=== PATIENT | male | born 1980 | race Caucasian/White ===

== ENCOUNTER 2017-05-22 15:58 | Outpatient (RCR) | payer OTHER, SELFPAY | END 2017-05-22 15:59 | LOC: NS 15:58 | PROVIDERS: Family Provider Family Medicine; PCP Family Medicine; Visit Provider Family Medicine | DX: E66.01 Morbid (severe) obesity due to excess calories (principal); Z68.41 Body mass index [BMI] 40.0-44.9, adult; Z71.3 Dietary counseling and surveillance | CPT/HCPCS: 97803 ==

== ENCOUNTER 2017-11-28 11:09 | Outpatient (RCR) | payer OTHER, SELFPAY | END 2017-12-04 23:59 | LOC: NS 11:09 | PROVIDERS: Family Provider Family Medicine; PCP Family Medicine; Visit Provider Family Medicine | DX: E66.01 Morbid (severe) obesity due to excess calories (principal); Z68.42 Body mass index [BMI] 45.0-49.9, adult; Z71.3 Dietary counseling and surveillance | CPT/HCPCS: 97802 ==

== ENCOUNTER 2017-12-19 08:54 | Outpatient (RCR) | payer OTHER, SELFPAY | END 2018-01-04 23:59 | LOC: NS 08:54 | PROVIDERS: Family Provider Family Medicine; PCP Family Medicine; Visit Provider Family Medicine | DX: E66.01 Morbid (severe) obesity due to excess calories (principal); Z68.42 Body mass index [BMI] 45.0-49.9, adult; Z71.3 Dietary counseling and surveillance | CPT/HCPCS: 97803 ==

== ENCOUNTER 2018-01-10 11:58 | Outpatient (RCR) | payer OTHER, SELFPAY | END 2018-02-03 23:59 | LOC: NS 11:58 | PROVIDERS: Family Provider Family Medicine; PCP Family Medicine; Visit Provider Family Medicine | DX: E66.01 Morbid (severe) obesity due to excess calories (principal); Z68.42 Body mass index [BMI] 45.0-49.9, adult; Z71.3 Dietary counseling and surveillance ==

== ENCOUNTER 2018-02-25 09:16 | Outpatient (RCR) | payer OTHER, SELFPAY | END 2018-02-25 23:59 | LOC: NS 09:16 | PROVIDERS: Family Provider Family Medicine; PCP Family Medicine; Visit Provider Family Medicine | DX: E66.01 Morbid (severe) obesity due to excess calories (principal); Z68.42 Body mass index [BMI] 45.0-49.9, adult; Z71.3 Dietary counseling and surveillance | CPT/HCPCS: 97803 ==

== ENCOUNTER → 2018-06-11 12:23 | Outpatient (CLI) | payer OTHER, SELFPAY ==
[2018-06-11 12:14] VITALS: BMI 48.4
--- NOTE | 2018-06-11 12:25 | RAD_ITS ---
STUDY: X-RAY CHEST REASON FOR EXAM: Male, 38 years old. Shortness of breath. Dyspnea. TECHNIQUE: PA and lateral views of the chest. COMPARISON: None. FINDINGS: The lungs are clear and expanded. There is no demonstrated pleural abnormality. Normal size heart. Normal mediastinum and jolene. Normal visualized pulmonary arteries. Normal visualized aortic arch and descending thoracic aorta. Normal visualized thoracic spine. Normal visualized ribs, clavicles, and shoulders. There is no demonstrated abnormality of the visualized soft tissue structures of the upper abdomen. RAD/Chest PA and Lateral IMPRESSION: Normal x-ray examination of the chest. Electronically Signed: Fiasal Sandoval MD at 13:14 EST , Service support ,
== END ==
PROVIDERS: Family Provider Family Medicine; PCP Family Medicine; Referring Provider Physician Assistant Surgical; Visit Provider Physician Assistant Surgical
DX: R06.02 Shortness of breath (principal)
CPT/HCPCS: 71046

== ENCOUNTER → 2019-01-27 10:21 | Outpatient (CLI) | payer OTHER, SELFPAY ==
[2018-08-05 11:03] VITALS: BMI 48.4
[2019-01-27 11:05] LABS: Absolute Lymphocyte Count 2.01 X10^3/uL (0.83-4.51); Absolute Neutrophil Count 3.8 X10^3/uL (2.0-7.7); Basophil# 0.04 X10^3/uL; Basophil% 0.6 % (0-1); Eosinophils% 3.1 % (0-5); Hematocrit 44.4 % (40-54); Hemoglobin 15.5 g/dL (13.0-16.5); Lymphocyte # 2.01 X10^3/ul (4.0); Lymphocyte % 30.8 % (19-41); Mean Corp Hgb Conc 34.9 g/dL (32-36); Mean Corpuscular Hgb 33.5 pg (27.0-32.0); Mean Corpuscular Volume 95.9 fL (80-94); Mean Platelet Vol. 9.8 fl (6.2-12.0); Monocyte# 0.51 X10^3/uL; Monocyte% 7.8 % (0-10); NRBC Flagged by Analyzer 0 % (0-5); Neutrophil # 3.75 X10^3/uL (2.7-7.7); Neutrophil % 57.5 % (47-70); Platelet Count 227 K/mm3 (150-450); RBC Distribution Width CV 12.1 % (11.6-14.6); RBC Distribution Width SD 42.4 fl (35.1-43.9); Red Blood Count 4.63 M/mm3 (4.6-6.2); White Blood Count 6.5 K/mm3 (4.4-11.0)
[2019-01-27 11:40] LABS: ALB/GLOB Ratio 1.1 RATIO (0.9-2.4); AST(SGOT) 28 U/L (15-37); Alanine Aminotransfer ALT/SGPT 64 U/L (16-61); Albumin, Serum 4.1 g/dL (3.2-5.0); Alkaline Phosphatase 72 U/L (45-117); Anion Gap 7 (5-15); BUN 18 mg/dL (7-18); BUN/Creat Ratio 15.9 RATIO (10-20); Calcium,Total 9.2 mg/dL (8.5-10.1); Chloride 105 mmol/L (98-107); Cholesterol 214 mg/dL (200); Creatinine, Serum 1.13 mg/dL (0.70-1.30); EST Glomerular Filtration Rate 77 mL/min (>60); Est Glom Filt Rate - Afr Amer 94 mL/min (>60); Free T3 3.3 pg/mL (2.18-3.98); Globulin 3.9 g/dL (2.2-4.2); Glucose 95 mg/dL (74-106); High Density Lipoprotein 79 mg/dL; Potassium 4.5 mmol/L (3.5-5.1); Sodium Level 140 mmol/L (136-145); Triglycerides 80 mg/dL; Very Low Density Lipoprotein 16 mg/dL (5-40)
== END ==
PROVIDERS: Family Provider Family Medicine; PCP Family Medicine; Referring Provider Family Medicine; Visit Provider Family Medicine
DX: Z13.220 Encounter for screening for lipoid disorders (principal); Z13.1 Encounter for screening for diabetes mellitus; R53.82 Chronic fatigue, unspecified
CPT/HCPCS: 36415; 80053; 80061; 84436; 84439; 84443; 84481; 85025

== ENCOUNTER → 2019-04-07 10:37 | Outpatient (CLI) | payer OTHER, SELFPAY ==
[2019-04-07 10:21] VITALS: BMI 48.4
[2019-04-10 08:33] LABS: Lyme IgG P18 Ab Absent (.); Lyme IgG P23 Ab Absent (.); Lyme IgG P28 Ab Absent (.); Lyme IgG P30 Ab Absent (.); Lyme IgG P39 Ab Absent (.); Lyme IgG P41 Ab Absent (.); Lyme IgG P45 Ab Absent (.); Lyme IgG P58 Ab Absent (.); Lyme IgG P66 Ab Absent (.); Lyme IgG P93 Ab Absent (.); Lyme IgM P23 Ab Absent (.); Lyme IgM P39 Ab Absent (.); Lyme IgM P41 Ab Absent (.)
[2019-04-10 11:21] LABS: Lyme IgG WB Interpretation Negative (.); Lyme IgM WB Interpretation Negative (.)
== END ==
PROVIDERS: Family Provider Family Medicine; PCP Family Medicine; Referring Provider Physician Assistant; Visit Provider Physician Assistant
DX: T14.8XXA Other injury of unspecified body region, initial encounter (principal); W57.XXXA Bitten or stung by nonvenomous insect and other nonvenomous arthropods, initial encounter
CPT/HCPCS: 36415; 86617

== ENCOUNTER → 2020-04-19 10:54 | Outpatient (CLI) | payer OTHER, SELFPAY ==
[2019-07-04 16:25] VITALS: BMI 48.4
--- NOTE | 2020-04-19 10:56 | RAD_ITS ---
STUDY: X-RAY CHEST REASON FOR EXAM: Male, 39 years old. Chronic cough, hx of asthma -- some sob x couple months TECHNIQUE: PA and lateral views of the chest. COMPARISON: Comparison is made with prior study dated 06/11/2017. FINDINGS: The lungs are clear and expanded. There is no demonstrated pleural abnormality. Normal size heart. Normal mediastinum and jolene. Normal visualized pulmonary arteries. Normal visualized aortic arch and descending thoracic aorta. Normal visualized thoracic spine. Normal visualized ribs, clavicles, and shoulders. There is no demonstrated abnormality of the visualized soft tissue structures of the upper abdomen. RAD/Chest PA and Lateral IMPRESSION: Normal x-ray examination of the chest. Electronically Signed: Faisal Sandoval, at 11:19 EST , Service support ,
== END ==
PROVIDERS: PCP Family Medicine; Referring Provider Registered Nurse; Visit Provider Registered Nurse
DX: R05 Cough (principal); Z87.09 Personal history of other diseases of the respiratory system
CPT/HCPCS: 71046

== ENCOUNTER 2020-06-18 14:00 | Outpatient (RCR) | payer OTHER, SELFPAY ==
[2019-07-04 16:25] VITALS: BMI 48.4
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
--- NOTE | 2020-11-10 11:29 | HP.PT.NRP ---
SHANELL LORENZO was seen in my office for initial evaluation on 05/19/20. The following Plan of Care was established for this patient: Initial Frequency: 2x /Week Initial Duration: 4 Weeks This patient was last seen in our office . Pertinent comments regarding their Physical therapy will appear below: Patient seen for PT for lumbar pain for DLS ,postural ex's and Charlette ex's thus is d/c doing better. At this point I will be discontinuing this patient from physical therapy. I would be happy to see this patient again in the future if found appropriate by the physician. Thank you! Juan M Persaud, PT, Cert MDT, OCS
== END 2020-06-18 19:00 | disposition home or self-care (01) ==
LOC: PT 14:00
PROVIDERS: PCP Family Medicine; Referring Provider Family Medicine; Visit Provider Family Medicine
DX: S39.012D Strain of muscle, fascia and tendon of lower back, subsequent encounter (principal)
CPT/HCPCS: 97110; 97162; 97530

== ENCOUNTER → 2020-09-06 13:59 | Outpatient (CLI) | payer OTHER, SELFPAY ==
[2019-07-04 16:25] VITALS: BMI 48.4
--- NOTE | 2020-09-06 14:02 | RAD_ITS ---
STUDY: X-RAY - LEFT ANKLE REASON FOR EXAM: Male, 40 years old. SWELLING TECHNIQUE: 3 view(s) of the ankle. COMPARISON: None. FINDINGS: Normal visualized distal tibia and fibula. Normal medial and lateral malleoli. Normal tibiotalar articulation and ankle mortise. Normal visualized talus and calcaneus. The visualized subtalar, talonavicular, calcaneocuboid and tarsal articulations are normal. There is no demonstrated fracture. There is mild diffuse soft tissue swelling. RAD/Ankle min 3 Views IMPRESSION: Soft tissue swelling as described. Otherwise normal x-ray examination of the ankle. Electronically Signed: Dawna Yusuf MD at 2:07 EDT , Service support ,
--- NOTE | 2020-09-06 14:02 | RAD_ITS ---
STUDY: X-RAY - LEFT FOOT CLINICAL: Male, 40 years old. SWELLING TECHNIQUE: 3 view(s) of the foot. COMPARISON: None. FINDINGS: Normal talus, calcaneus, and tarsal bones. Normal visualized subtalar, talonavicular, calcaneocuboid, tarsal and tarsometatarsal articulations. Normal metatarsi. Normal metatarsophalangeal joint of the great toe. Normal tibial and fibular sesamoid bones. Normal interphalangeal joint of the great toe. Normal phalanges of the great toe. Normal second through fifth metatarsophalangeal joints. Normal interphalangeal joints and phalanges of the lesser toes. There is mild diffuse soft tissue swelling surrounding the ankle and dorsum of the foot. There is no demonstrated fracture. RAD/Foot min 3 Views IMPRESSION: Nonspecific soft tissue swelling. No acute fracture or subluxation. Electronically Signed: Dawna Yusuf MD at 2:07 EDT , Service support ,
== END ==
PROVIDERS: PCP Family Medicine; Referring Provider Family Medicine; Visit Provider Family Medicine
DX: M25.472 Effusion, left ankle (principal)
CPT/HCPCS: 73610; 73630

== ENCOUNTER → 2022-02-14 | Outpatient (CLI) | payer OTHER, SELFPAY ==
--- NOTE | 2022-02-14 11:32 | RAD_ITS ---
STUDY: X-RAY - RIGHT SHOULDER REASON FOR EXAM: Male, 41 years old. Shoulder pain. TECHNIQUE: 4 view(s) of the shoulder. COMPARISON: None. FINDINGS: Normal glenohumeral articulation. Mild arthrosis of the AC joint. Normal acromion. Normal humeral head and visualized proximal humerus. The soft tissue structures are unremarkable. Normal visualized pulmonary apex. RAD/Shoulder min 2 Views IMPRESSION: Mild arthrosis of the AC joint. No other abnormality present. Electronically Signed: Jose Nails, at 12:00 EDT ,
== END | disposition home or self-care (01) ==
LOC: MTRAD 11:22
PROVIDERS: PCP Family Medicine; Referring Provider Family Medicine; Visit Provider Family Medicine
DX: M25.511 Pain in right shoulder (principal)
CPT/HCPCS: 73030

== ENCOUNTER → 2022-05-21 | Outpatient (CLI) | payer OTHER, SELFPAY ==
--- NOTE | 2022-05-21 13:58 | RAD_ITS ---
INDICATION: cough, dyspnea -- please send copy of results to Leon Verduzco MD EXAMINATION/TECHNIQUE: X-RAY - XR Chest 2 Views COMPARISON: April 19, 2020 FINDINGS: LINES/DEVICES: None. LUNGS: There is no new focal consolidation. MEDIASTINUM AND CARDIOVASCULAR STRUCTURES: Cardiac silhouette not enlarged. Central airways and mediastinal contour are unremarkable. BONES AND SOFT TISSUES: Unremarkable. RAD/Chest PA and Lateral IMPRESSION: No radiographic evidence of acute cardiopulmonary disease. Electronically Signed: Sheyla Vann MD at 14:18 EST ,
== END | disposition home or self-care (01) ==
LOC: RAD 13:58
PROVIDERS: PCP Family Medicine; Visit Provider Physician Assistant
DX: R05.9 Cough, unspecified (principal); R06.00 Dyspnea, unspecified
CPT/HCPCS: 71046

== ENCOUNTER → 2023-01-01 | Outpatient (CLI) | payer OTHER, SELFPAY ==
[2023-01-01 08:59] LABS: PSA,Total - Annual Screen 0.22 ng/mL (0.00-4.00)
== END | disposition home or self-care (01) ==
PROVIDERS: PCP Family Medicine; Referring Provider Family Medicine; Visit Provider Family Medicine
DX: E78.00 Pure hypercholesterolemia, unspecified (principal); Z13.1 Encounter for screening for diabetes mellitus; Z12.5 Encounter for screening for malignant neoplasm of prostate
CPT/HCPCS: 36415; 84153; G0103

== ENCOUNTER 2024-01-04 14:00 | Outpatient (RCR) | payer OTHER, SELFPAY ==
--- NOTE | 2023-11-14 15:01 | HP.PTEVAL_ITS ---
Patient's Visit Information Visit Information Visit Information: SHANELL LORENZO is a 43 year old M referred to Physical Therapy by AUBREE Mathew with a diagnosis of EPICONDYLITIS RIGHT ELBOW. Date of Evaluation: 11/14/23 Physical Therapist: Juan M Persaud, PT, Cert MDT, OCS Visit Plan Frequency: 2x /Week Duration: 4 Weeks Plan: PT INTERVENTIONS US/CP ,ECCENTRIC STRENGTHENING WRIST FLEXORS/SUPINATORS ,STRETCHING WRIST FLEXORS ,ACTIVITY MODIFICATION AND MANUAL THERAPY PRN Subjective Subjective: This 43 y/o male presents to physical therapy with right epicondylitis elbow. 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 Noticed increase pain lateral pain. [facility]en [facility] recommended stretches and prednisone. Pain located global elbow . Described as stinging pain. Symptoms worse lifting ,twisting ,grasping such as using wrench. Alleviating factors none. Pain affects sleeping . No diagnostics. Pain affects sleeping. Patient pain affects job demands and housework tasks. Patient goals to decrease pain. 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 Right Elbow: Pain Intensity (Out of 10): 3 Pain Intensity Range: 10 Objective Objective: POSTURE: WFL PALAPTION: tender medial epicondyle elbow NEURO: denies paresthesia/tingling AROM elbow flexion 0-130 degrees supine flexion,wrist extension 80 degrees , flexion 75 degrees supination pronation 90 degrees MMT: bicep 5/5, (brachialis ,bicep brachi , brachioradialis ) wrist extensors 4/5 , wrist flexors 4/5 pain medial elbow,pronation 4/5 pain medial elbow Special Tests R Elbow Flexion Test - Cubital Tunnel: Negative R Elbow Valgus Stress Test - MCL Instability: Negative R Elbow Lat Epiconylitis - as named: Positive Comments: medial Balance/Special Test Scores Quick DASH Score: 31.8175 Goals Goal 1:: Patient to be I with elbow pain for HEP Goal Time Frame: 4-6 Weeks Goal 2:: Patient to resolve symptoms by 70% improvement to improve function job and house tasks Goal Time Frame: 4-6 Weeks Goal 3:: Patient to have 5/5 strength wrist flexors and pronation without pain medial elbow. Goal Time Frame: 4-6 Weeks Goal 4:: Patient to improve quick dash by 5 points to improve QOL and function Goal Time Frame: 4-6 Weeks Rehabilitation Potential Physical Therapy Diagnosis: Patient has medial epicondylitis with pain with lifting ,pronation ,and palaption ,pain with MMT affects ADLs and job demands/housework task thus benefit from skilled PT Rehabilitation Potential: Good Anticipated Interventions Patient/Client Instruction: Educate patient on: Condition and Plan of Care For the Purpose of:: To decrease pain, To increase ROM, To improve nutrient delivery to tissue, To increase oxygenation perfusion, To improve muscle performance and motor function, To improve ability of physical actions for home/community/work/leisure, To improve health of tissue, To decrease soft tissue restriction, To increase flexibility/ROM and To reduce risk of recurrence Therapeutic Exercise to Include: Strength training, Flexibilty training, Passive ROM and Active ROM For the Purpose of:: To decrease pain, To decrease swelling/inflammation, To increase ROM, To improve nutrient delivery to tissue, To increase oxygenation perfusion, To increase tolerance to activity/condition/position, To improve ability of physical actions for home/community/work/leisure, To improve health of tissue, To decrease soft tissue restriction, To increase flexibility/ROM, To prevent re-injury and To improve tolerance to ADL's Manual Therapy Techniques to Include: Soft tissue mobilization Comment: MEDIAL ELBOW INSERTIONS TENDON For the Purpose of:: To decrease pain, To increase ROM, To improve nutrient delivery to tissue, To increase oxygenation perfusion, To improve health of tissue and To decrease soft tissue restriction TENS: Yes IF ES: Yes Cryotherapy (ice pack, ice massage): Yes For the Purpose of:: To decrease pain, To increase ROM, To improve nutrient delivery to tissue, To increase oxygenation perfusion, To improve health of tiss ue and To decrease soft tissue restriction Text: Thank you for the opportunity to evaluate your patient. For Medicare and Medicare HMO plans, please review the plan of care and approve it. It will need to be FAXED BACK to us at [phone] for Medicare purposes. For Medicare only, by signing this I certify the plan of care. Please let me know if there are questions or concerns regarding this plan of care. Physician Signature: Date:
--- NOTE | 2024-01-04 14:33 | HP.PTDCSUM ---
Discharge Summary D/C summary: It has been my pleasure to treat SHANELL LORENZO referred by AUBREE Mathew, with the diagnosis of EPICONDYLITIS RIGHT ELBOW for a total of 8 visit(s). Discharge Date: 01/04/24 Please see the following information for a summary of their discharge status. Subjective Subjective: DoING BETTER Pain Right Elbow: Pain Intensity (Out of 10): 0 Overall Improvement % Improvement: 80 Objective Objective/Function: POSTURE: WFL PALAPTION: tender medial epicondyle elbow NEURO: denies paresthesia/tingling AROM elbow flexion 0-130 degrees supine flexion,wrist extension 80 degrees , flexion 75 degrees supination pronation 90 degrees MMT: bicep 5/5, (brachialis ,bicep brachi , brachioradialis ) wrist extensors 4/5 , wrist flexors 4/5 pain medial elbow,pronation 4/5 pain medial elbow DYNOMETOR: 120# LEFT ,RIGHT 140# Goals Goal 1:: Patient to be I with elbow pain for HEP Goal Progress: Goal Met Goal 2:: Patient to resolve symptoms by 70% improvement to improve function job and house tasks Goal Progress: Goal Met Goal 3:: Patient to have 5/5 strength wrist flexors and pronation without pain medial elbow. Goal Progress: Goal Met Goal 4:: Patient to improve quick dash by 5 points to improve QOL and function Goal Progress: Goal Met Plan Plan: D/C D/C Information d/c sentence: If there are questions or concerns regarding this patient's physical therapy, please feel free to call me at [phone]. Thank you for the referral of this patient. Sincerely, Juan M Persaud, PT, Cert MDT, OCS Balance/Gait/Functional tests Balance/Special Test Scores Quick DASH Score: 2.2725 Improvement % Improvement: 80
== END 2024-01-04 19:00 | disposition home or self-care (01) ==
LOC: PT 14:00
PROVIDERS: PCP Family Medicine; Referring Provider Physician Assistant Surgical; Visit Provider Physician Assistant Surgical
DX: M77.11 Lateral epicondylitis, right elbow (principal)
CPT/HCPCS: 97035; 97110; 97162; 97530

== ENCOUNTER 2024-09-30 09:11 | Emergency (ER) | payer OTHER, SELFPAY ==
[2024-09-30 09:11] VITALS: BP 156/92; PULSE 81; RESP 16; TEMP 36.8; O2SAT 100
[2024-09-30 09:15] VITALS: BMI 39.0
--- NOTE | 2024-09-30 09:25 | EDS_ITS ---
HPI History of Present Illness Chief Complaint: Back Informant: patient Narrative Narrative: 44-year-old male states 3 days ago he lifted a tire and suddenly felt a painful pop in his back. Ever since he has been having pain just right of midline in his low back near his tailbone, and some paresthesias in his right lower extremity down to his foot. No weakness in the leg. No bowel or bladder dysfunction or saddle anesthesia. No other injury. He has been able to walk okay but is painful in his back to do so. [facility] Medical History Acute frontal sinusitis, unspecified Difficulty balancing Asthma history of meniscus repair Fatigue Home Medications ?Medication ?Instructions ?Recorded ?Last Taken ?Type ascorbic acid (vitamin C) 1 g PO Q6H 02/28/18 Unknown History cholecalciferol (vitamin D3) 25 1,000 unit PO DAILY Unknown History mcg (1,000 unit) capsule albuterol sulfate 90 mcg/actuation 2 puff inhalation Q 6H #8.5 grams 05/21/22 Unknown Rx aerosol inhaler escitalopram oxalate 20 mg tablet 20 mg PO QDAY Unknown History lisinopril 40 mg tablet 40 mg PO QDAY 09/21/23 Unkno wn History benzonatate 200 mg capsule 200 mg PO TID PRN cough #20 caps 06/04/24 Unknown Rx methylprednisolone 4 mg tablets in See Rx Instructions PO PER PKG DIR 06/04/24 Unknown Rx a dose pack (Medrol (Shoaib)) #21 tabs bupropion HCl 200 mg tablet,12 hr 200 mg PO BID Unknown History sustained-release rosuvastatin 5 mg tablet 5 mg PO DAILY 09/30/24 Unkno wn History Allergy/AdvReac Type Severity Reaction Status Date / Time No Known Allergies Allergy Verified 09/30/24 09:11 Family History Father Diabetes Heart disease Social History Smoking Status: Never smoker alcohol intake: never ROS ROS ED Constitutional Constitutional ED: Denies chills or fever(s) Gastrointestinal Gastrointestinal: Denies abdominal pain, constipation, fecal incontinence, nausea or vomiting Genitourinary Genitourinary ED: Reports other Details: no urinary retention ; Denies abdominal discomfort or urinary incontinence Musculoskeletal Musculoskeletal: Reports as per HPI and back pain; Denies neck pain Integumentary Denies rash or wounds Neurologic Neurologic: Reports paresthesias RLE (feels like asleep); Denies headache(s) or weakness EXAM Physical Exam Const Vital Signs: 09/30/24 09:11 Temperature 98.3 F Temperature Source Oral Pulse Rate 81 Respiratory Rate 16 Blood Pressure 156/92 H Blood Pressure Mean 113 Pulse Ox 100 Oxygen Delivery Method Room Air Positive well nourished and well developed General Appearance ED: well developed and NAD HEENT Negative for trauma or tenderness Eyes PERRL and EOMs intact bilaterally Neck full ROM and supple GI normal to inspection, nondistended, normoactive bowel sounds, soft to palpation and non-tender Back/Spine normal to inspection Back/Spine Narrative: Cross straight leg raise is positive, reproducing radicular paresthesias right lower extremity. Ipsilateral straight leg raise negative, but only tolerates about 15-20 degrees of thigh flexion. Lumbar Spine / Lower Back: ROM limited; Negative for lumbar spinal tenderness or paraspinal muscle tenderness Extremity normal to inspection, full ROM and no pedal edema Neuro oriented x3 and no sensory deficits noted Sensorium / Orientation: alert Motor Exam: strength 5/5 throughout and clonus absent Deep Tendon Reflexes: Rt Patellar (L4): 2+, Lt Patellar (L4): 2+, Rt Ankle (S1): 2+ and Lt Ankle (S1): 2+ Deep Tendon Reflexes Back: Rt Patellar (L4): 2+, Lt Patellar (L4): 2+, Rt Ankle (S1): 2+ and Lt Ankle (S1): 2+ Plantar Reflex: Downgoing: bilateral Psych mental status grossly normal and thought process normal Skin no rashes or lesions noted and no wounds Discharge Plan Triage Chief Complaint: Back ED Provider: Sonu Shah Dx/Rx/DC Orders Prescriptions: No Action ascorbic acid (vitamin C) crystals 1 g PO Q6H cholecalciferol (vitamin D3) 1,000 unit capsule 1,000 unit PO DAILY albuterol sulfate 90 mcg/actuation HFA aerosol inhaler 2 puff inhalation Q6H Qty: 8.5 0RF lisinopril 40 mg tablet 40 mg PO QDAY escitalopram oxalate 20 mg tablet 20 mg PO QDAY methylprednisolone [Medrol (Shoaib)] 4 mg tablets,dose pack See Rx Instructions PO PER PKG DIR Qty: 21 0RF Rx Instructions: PO PER PKG DIR benzonatate 200 mg capsule 200 mg PO TID PRN (Reason: cough) Qty: 20 0RF bupropion HCl 200 mg tablet sustained-release 12 hr 200 mg PO BID rosuvastatin 5 mg tablet 5 mg PO DAILY Primary Care Provider: Leon Verduzco Referrals: Leon Verduzco MD [Primary Care Provider] - Print Language: Tanzanian
--- NOTE | 2024-09-30 09:25 | ED.VIS.BACK ---
HPI History of Present Illness Chief Complaint: Back Informant: patient Narrative Narrative: 44-year-old male states 3 days ago he lifted a tire and suddenly felt a painful pop in his back. Ever since he has been having pain just right of midline in his low back near his tailbone, and some paresthesias in his right lower extremity down to his foot. No weakness in the leg. No bowel or bladder dysfunction or saddle anesthesia. No other injury. He has been able to walk okay but is painful in his back to do so. [facility] Medical History Acute frontal sinusitis, unspecified Difficulty balancing Asthma history of meniscus repair Fatigue Home Medications ?Medication ?Instructions ?Recorded ?Last Taken ?Type ascorbic acid (vitamin C) 1 g PO Q6H 02/28/18 Unknown History cholecalciferol (vitamin D3) 25 1,000 unit PO DAILY 02/28/18 Unknown History mcg (1,000 unit) capsule albuterol sulfate 90 mcg/actuation 2 puff inhalation Q6H #8.5 grams 05/21/22 Unknown Rx aerosol inhaler escitalopram oxalate 20 mg tablet 20 mg PO QDAY 09/21/23 Unknown History lisinopril 40 mg tablet 40 mg PO QDAY 09/21/23 Unknown History benzonatate 200 mg capsule 200 mg PO TID PRN cough #20 caps 06/04/24 Unknown Rx bupropion HCl 200 mg tablet,12 hr 200 mg PO BID 09/30/24 Unknown History sustained-release methylprednisolone 4 mg tablets in See Rx Instructions PO .COMPLEX 09/30/24 Unknown Rx a dose pack (Medrol (Shoaib)) #21 tabs oxycodone-acetaminophen 5 mg-325 1 tab PO Q6H PRN PRN Pain 3 days 09/30/24 Unknown Rx mg tablet #12 TABLETS rosuvastatin 5 mg tablet 5 mg PO DAILY 09/30/24 Unknown History Allergy/AdvReac Type Severity Reaction Status Date / Time No Known Allergies Allergy Verified 09/30/24 09:11 Family History Father Diabetes Heart disease Social History Smoking Status: Never smoker alcohol intake: never ROS ROS ED Constitutional Constitutional ED: Denies chills or fever(s) Gastrointestinal Gastrointestinal: Denies abdominal pain, constipation, fecal incontinence, nausea or vomiting Genitourinary Genitourinary ED: Reports other Details: no urinary retention ; Denies abdominal discomfort or urinary incontinence Musculoskeletal Musculoskeletal: Reports as per HPI and back pain; Denies neck pain Integumentary Denies rash or wounds Neurologic Neurologic: Reports paresthesias RLE (feels like asleep); Denies headache(s) or weakness EXAM Physical Exam Const Vital Signs: 09/30/24 09:11 09/30/24 10:27 Temperature 98.3 F Temperature Source Oral Pulse Rate 81 73 Respiratory Rate 16 17 Blood Pressure 156/92 H 131/77 H Blood Pressure Mean 113 95 Pulse Ox 100 99 Oxygen Delivery Method Room Air Room Air Positive well nourished and well developed General Appearance ED: well developed and NAD HEENT Negative for trauma or tenderness Eyes PERRL and EOMs intact bilaterally Neck full ROM and supple GI normal to inspection, nondistended, normoactive bowel sounds, soft to palpation and non-tender Back/Spine normal to inspection Back/Spine Narrative: Cross straight leg raise is positive, reproducing radicular paresthesias right lower extremity. Ipsilateral straight leg raise negative, but only tolerates about 15-20 degrees of thigh flexion. Lumbar Spine / Lower Back: ROM limited; Negative for lumbar spinal tenderness or paraspinal muscle tenderness Extremity normal to inspection, full ROM and no pedal edema Neuro oriented x3 and no sensory deficits noted Sensorium / Orientation: alert Motor Exam: strength 5/5 throughout and clonus absent Deep Tendon Reflexes: Rt Patellar (L4): 2+, Lt Patellar (L4): 2+, Rt Ankle (S1): 2+ and Lt Ankle (S1): 2+ Deep Tendon Reflexes Back: Rt Patellar (L4): 2+, Lt Patellar (L4): 2+, Rt Ankle (S1): 2+ and Lt Ankle (S1): 2+ Plantar Reflex: Downgoing: bilateral Psych mental status grossly normal and thought process normal Skin no rashes or lesions noted and no wounds MDM MDM MDM Narrative Medical decision making narrative: Obtain 2 view of the lumbosacral spine x-rays of my interpretation no acute fractures. Radiology noting that there is a L5-S1 disc space narrowing. This is consistent with where he likely has radiculopathy. His numbness objectively goes down to the lower leg, it is mild more lateral and posterior, does not involve the foot objectively, certainly could be consistent with an L5 radiculopathy. Discussed with Dr. Manzo, he agrees with discharging patient on pain control and a Medrol Dosepak and he will see him as an outpatient. He was also given pain control here. Radiography Diagnostic Testing: Clinical Impression(s) from Imaging Studies Lumbar Spine X-Ray 09/30/24 09:38 IMPRESSION: There is mild loss of disc height at L5-S1. [facility] Discussion w/another healthcare provider: [employer] (ortho spine , Jovany) Discharge Plan Triage Chief Complaint: Back ED Provider: Sonu Shah Dx/Rx/DC Orders Clinical Impression: Acute right-sided low back pain with right-sided sciatica, Lumbosacral radiculopathy at L5 Instructions: Understanding Lumbar Radiculopathy, ED Sciatica Prescriptions: New methylprednisolone [Medrol (Shoaib)] 4 mg tablets,dose pack See Rx Instructions .ROUTE .COMPLEX Qty: 21 0RF Rx Instructions: orally per package directions oxycodone-acetaminophen 5-325 mg tablet 1 tab PO Q6H PRN PRN (Reason: Pain) 3 Days Qty: 12 0RF Continued ascorbic acid (vitamin C) crystals 1 g PO Q6H cholecalciferol (vitamin D3) 1,000 unit capsule 1,000 unit PO DAILY albuterol sulfate 90 mcg/actuation HFA aerosol inhaler 2 puff inhalation Q6H Qty: 8.5 0RF lisinopril 40 mg tablet 40 mg PO QDAY escitalopram oxalate 20 mg tablet 20 mg PO QDAY benzonatate 200 mg capsule 200 mg PO TID PRN (Reason: cough) Qty: 20 0RF bupropion HCl 200 mg tablet sustained-release 12 hr 200 mg PO BID rosuvastatin 5 mg tablet 5 mg PO DAILY Discontinued methylprednisolone [Medrol (Shoaib)] 4 mg tablets,dose pack See Rx Instructions PO PER PKG DIR Qty: 21 0RF Rx Instructions: PO PER PKG DIR Primary Care Provider: Leon Verduzco Referrals: Javon Manzo MD [Med Staff - Active Staff] - As soon as possible Print Language: Tamazight Disposition Disposition: Home, Self Care
--- NOTE | 2024-09-30 09:38 | RAD_ITS ---
PROCEDURE: LUMBAR SPINE 2 OR 3 VIEWS 09/30/2024 REASON FOR EXAM: PAIN/INJURY W/ SCIATICA RLE TECHNIQUE: 2 view(s) of the lumbar spine COMPARISON: None FINDINGS: Vertebral body height and alignment are well-maintained. There is mild loss of disc height at L5-S1. The facet articulations are aligned. Mineralization is normal. There is no visible atherosclerosis. RAD/Lumbar Spine 2 or 3 Views IMPRESSION: There is mild loss of disc height at L5-S1. Reading Location: [facility]
[2024-09-30] MEDS: Ketorolac 60 MG/2 ML Vial IM (10:14)
[2024-09-30] MEDS: Morphine 4 MG/ML Syringe IM (10:14)
[2024-09-30] MEDS: Ondansetron ODT 4 MG Tablet 8 MG PO (10:14)
[2024-09-30 10:27] VITALS: BP 131/77; PULSE 73; RESP 17; O2SAT 99
--- NOTE | 2024-09-30 10:28 | ED.RN ---
PT WAS BENDING WHILE DOING SOME WORK, HE HEARD AN AUDIBLE POP AND HAS PT WITH MOVEMENT SINCE
[2024-09-30 11:06] VITALS: BP 131/77; PULSE 73; RESP 17; TEMP 37; O2SAT 99
== END 2024-09-30 11:07 | disposition home or self-care (01) ==
PROVIDERS: Emergency Provider Emergency Medicine; PCP Family Medicine; Visit Provider Emergency Medicine
DX: M54.31 Sciatica, right side (principal); M54.17 Radiculopathy, lumbosacral region
CPT/HCPCS: 72100; 96372; 99282

== ENCOUNTER → 2024-10-02 | Outpatient (CLI) | payer OTHER, SELFPAY ==
--- NOTE | 2024-10-02 09:36 | RAD_ITS ---
PROCEDURE: L/S SPINE BENDING FLEX/EXT 10/02/2024 REASON FOR EXAM: PAIN TECHNIQUE: Two views, flexion-extension COMPARISON: 09/30/2024 FINDINGS: No fracture or malalignment identified. No evidence of instability. L1-2 and L3-4 spondylosis, degenerative endplate change. [id number] appearing colonic stool partially imaged RAD/L/S Spine Bending Flex/Ext IMPRESSION: Flexion-extension as above. Reading Location: [id number]
== END | disposition home or self-care (01) ==
LOC: MTRAD 09:35
PROVIDERS: PCP Family Medicine; Referring Provider Student in an Organized Health Care Education/Training Program; Visit Provider Student in an Organized Health Care Education/Training Program
DX: M54.50 Low back pain, unspecified (principal)
CPT/HCPCS: 72120

== ENCOUNTER → 2024-10-09 | Outpatient (CLI) | payer OTHER, SELFPAY ==
--- NOTE | 2024-10-09 13:34 | MRI_ITS ---
PROCEDURE: SPINE LUMBAR (ROUTINE) 10/09/2024 REASON FOR EXAM: PAIN TECHNIQUE: Multiplanar and multisequence images were obtained without IV contrast administration. COMPARISON: None FINDINGS: Vertebral body heights are within normal limits. Negative for fracture or marrow replacement. Alignment is within normal limits. Conus medullaris is intact and terminates at L1-2. Mild paraspinal muscle atrophy. L1-2: Mild posterior disc bulge. Mild bilateral facet arthrosis. No significant spinal stenosis or foraminal narrowing. L2-3: No focal disc abnormality, spinal stenosis or foraminal narrowing. Mild bilateral facet arthrosis. L3-4: Moderate posterior disc bulge. Mild bilateral facet arthrosis and ligamentum flavum hypertrophy. Mild/moderate spinal stenosis. Mild/moderate bilateral foraminal narrowing. L4-5: Small posterior disc bulge with superimposed annular fissure. Mild bilateral facet arthrosis and ligamentum flavum hypertrophy. No significant spinal stenosis. Mild/moderate bilateral foraminal narrowing. L5-S1: Small posterior disc bulge with superimposed annular fissure. Mild bilateral facet arthrosis. No significant spinal stenosis. Mild bilateral foraminal narrowing. MRI/Spine Lumbar (Routine) IMPRESSION: 1. Acquired mild/moderate spinal stenosis at L3-4. 2. Acquired mild/moderate bilateral foraminal narrowing at L3-4 and L4-5. Reading Location: [facility]
== END | disposition home or self-care (01) ==
LOC: OPMRI 13:15
PROVIDERS: PCP Family Medicine; Referring Provider Student in an Organized Health Care Education/Training Program; Visit Provider Student in an Organized Health Care Education/Training Program
DX: M54.17 Radiculopathy, lumbosacral region (principal); M54.41 Lumbago with sciatica, right side
CPT/HCPCS: 72148

== ENCOUNTER 2024-11-25 14:30 | Outpatient (RCR) | payer OTHER, SELFPAY ==
--- NOTE | 2024-10-08 16:14 | HP.PTEVAL_ITS ---
Patient's Visit Information Visit Information Visit Information: SHANELL LORENZO is a 44 year old M referred to Physical Therapy by AUBREE Mendosa with a diagnosis of LUMAGO WITH SCIATICA ,RIGHT SIDE ,RADICULOPATHY ,LUMBOSACRAL. Date of Evaluation: 10/08/24 Physical Therapist: Juan M Persaud, PT, Cert MDT, OCS Visit Plan Frequency: 2x /Week Duration: 4 Weeks Plan: PLAN FOR MRI 10/09 HIGHLY IRRITABLE PT INTERVENTIONS MODALITIES ,POSTURE TRAINING/BODY MECHANICS ,ACTIVITIES MODIFICATION ,JACQUIE EX'S TOSHIA PROGRESS DLS TOSHIA Subjective Subjective: This 44 y/o male presents physical therapy with with lumbar radiculopathy right . Patient injury occurred ~ 1 1/2 week shifting a tire ,felt a pop. Patient had immediate pain right lumbar to hamstrings to knee . Pain described as sharp stabbing pain more constant. Also had paresthesia right lower leg. Seen Mariana Kulkarni recommended PT and pain management . Patient seen DR Streeter today and plan epidural injection tomorrow. Medication muscle relaxer and oxycodone. Plan for MRI. Aggravating sitting ,bending ,lifting ,standing ,walking. Alleviating factors rest supine. Coughing/sneezing + . Bowel/bladder - . Patient pain affects sleeping. No trauma . Patient had back pain in past and had PT. Patient condition affects QOL and function/and job demands.Patient goals to decrease pain. 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 Pain Bilateral Back: Pain Intensity (Out of 10): 6 Comment: center to right Objective Objective: POSTURE: mild forward posture ,right lateral shift deformity PALPATION: TTP L5-S1 NEURO: c/o paresthesia right lower leg ,light touch intact ,reflexes L3-4,L4-5,L5- S1 2/3 GAIT: ambulates with slow antalgic gait with right shift deformity LUMBAR ROM: flexion mod/severe loss ,extension mod/severe loss ,side glides mid loss all with pain MMT: quads/hams left 4-/5 ,right 3+/5 ,hip flexion left right 4-/5 ,right 3+/5 ,dorsiflexion 4-/5 right left 4/5 FLEXABILITY: + SLR impairs flexibility Side glides + with pain both directions Special Tests L/S Slump test left side: Positive L/S Slump test right side: Positive L/S Left Straight Leg Raise: Negative L/S Right Straight Leg Raise: Positive Lumbar Standing: Flexion - Mechanical Response: No effect Lumbar Standing: Flexion - Symptoms During Testing: Peripheralizing Lumbar Standing: Flexion - Symptoms After Testing: Worse Lumbar Standing: Extension - Mechanical Response: No effect Lumbar Standing: Extension - Symptoms During Testing: Peripheralizing Lumbar Standing: Extension - Symptoms After Testing: Worse Lumbar Standing: Right Side Glides - Mechanical Response: No effect Lumbar Standing: Right Side [place] - Symptoms During Testing: Increases Lumbar Standing: Right Side [place] - Symptoms After Testing: Worse Lumbar Standing: Left Side [place] - Mechanical Response: No effect Lumbar Standing: Left Side [place] - Symptoms During Testing: Increases Lumbar Standing: Left Side [place] - Symptoms After Testing: Worse Lumbar Lying: Flexion - Mechanical Response: No effect Lumbar Lying: Flexion - Symptoms During Testing: Peripheralizing Lumbar Lying: Flexion - Symptoms After Testing: Worse Lumbar Lying: Extension - Mechanical Response: No effect Lumbar Lying: Extension - Symptoms During Testing: Decreases Lumbar Lying: Extension - Symptoms After Testing: Better Comments:: center to right or lumbar Balance/Special Test Scores Oswestry Low Back Score: 38 Goals Goal 1:: Patient to be I with HEP for back Goal Time Frame: 4-6 Weeks Goal 2:: Correct shift deformity with function Goal Time Frame: 4-6 Weeks Goal 3:: Patient to improve lumbar ROM for function of recovery for job demands Goal Time Frame: 4-6 Weeks Goal 4:: Patient to improve normalize gait Goal Time Frame: 4-6 Weeks Goal 5:: Patient to improve BLE strength to good for functional activities Goal Time Frame: 4-6 Weeks Goal 6:: Patient to improve back oswestry score by 5 points to improve QOL Goal Time Frame: 4-6 Weeks Rehabilitation Potential Physical Therapy Diagnosis: Patient appears to have derangement below knee HNP lumbar possble L5-S1 with poor lumbar ROM ,shift deformity ,weakness , decrease gait pain worse with positioning and motion testing worse with bending and sitting thus benefit from skilled PT Rehabilitation Potential: Fair Anticipated Interventions Patient/Client Instruction: Educate patient on: Condition and Plan of Care For the Purpose of:: To decrease pain, To increase ROM, To improve muscle performance and motor function, To improve ability to perform ADL's, To increase tolerance to activity/condition/position, To improve ability of physical actions for home/community/work/leisure, To improve health of tissue, To decrease soft tissue restriction, To increase flexibility/ROM and To improve tolerance to ADL's Therapeutic Exercise to Include: Strength training, Body mechanics, Postural training, Flexibilty training, Dynamic Lumbar Stabilization and Jacquie Exercises For the Purpose of:: To decrease pain, To increase ROM, To improve muscle performance and motor function, To increase tolerance to activity/condition/position, To improve ability of physical actions for home/community/work/leisure, To improve gait and locomotor functions, To improve health of tissue, To decrease soft tissue restriction, To increase flexibility/ROM, To prevent re-injury and To improve tolerance to ADL's TENS: Yes IF ES: Yes Cryotherapy (ice pack, ice massage): Yes Thermo therapy (hot pack): Yes For the Purpose of:: To decrease pain, To increase ROM, To improve nutrient delivery to tissue, To increase oxygenation perfusion, To improve health of tissue and To decrease soft tissue restriction Text: Thank you for the opportunity to evaluate your patient. For Medicare and Medicare HMO plans, please review the plan of care and approve it. It will need to be FAXED BACK to us at [phone] for Medicare purposes. For Medicare only, by signing this I certify the plan of care. Please let me know if there are questions or concerns regarding this plan of care. Physician Signature: Date:
== END 2024-11-25 19:00 | disposition home or self-care (01) ==
LOC: PT 14:30
PROVIDERS: PCP Family Medicine; Referring Provider Student in an Organized Health Care Education/Training Program; Visit Provider Student in an Organized Health Care Education/Training Program
DX: M54.41 Lumbago with sciatica, right side (principal); M54.17 Radiculopathy, lumbosacral region
CPT/HCPCS: 97014; 97110; 97162; 97530; G0283